=== PATIENT | female | born 1940 ===

== ENCOUNTER 2020-09-09 05:18 | Emergency (ER) | payer MEDICARE ==
[~2020-09-09] VITALS: Ht 162.6 cm; Wt 95.0 kg
--- NOTE | 2020-09-09 05:37 | NUR ---
PT C/O OF RIGHT ANKLE PAIN FROM FALLING YESTERDAY WHILE SHOPPING. ANKLE NOTED TO BE SWOLLEN AND BRUISED. CMS INTACT. DENIES HEAD INJURY, BLURRED VISION, OR LOC DURING FALL. PT ATTACHWD TO MONITORS, VSS. BED IN LOW POSITION. RAILS ENGAGED. WILL CONTINUE TO MONITOR. WHEELCHAIRED BACK TO ROOM. SON AT BEDSIDE.
[2020-09-09] MEDS ORDERED: BACITRACIN ZINC OINT 500U/GM, 0.9 GM ONE (05:52)
[2020-09-09] MEDS ORDERED: ACETAMINOPHEN 500 MG TABLET ONE (05:53)
[2020-09-09] MEDS ORDERED: ACETAMINOPHEN 500 MG TABLET PO ONE (06:00)
--- NOTE | 2020-09-09 06:01 | NUR ---
PT RESTING IN BED WATCHING TV. X-RAY TECH JUST LEFT ROOM. PT IN NAD. WCTM.
--- NOTE | 2020-09-09 06:34 | NUR ---
PT RESTING IN BED. ATTACHED TO MONITORRS. VSS. WCTM. NO AVCUTE CHANGES NOTED.
--- NOTE | 2020-09-09 06:50 | NUR ---
GAVE REPORT TO CHELY MUSTAFA
--- NOTE | 2020-09-09 07:07 | NUR ---
ASSUMING CARE OF PATIENT AFTER REPORT FROM BETH MUSTAFA. PT RESTING IN BED. NADN. SMITH. SON AT BEDSIDE.
[2020-09-09 08:07] VITALS: BP 135/59
--- NOTE | 2020-09-09 08:21 | NUR ---
Patient and Caregiver given discharge instructions and they have confirmed that they understand the instructions. Patient ambulatory with steady gait with assistance of cane. request wheelchair to car r/t pain.
== END 2020-09-09 08:22 | disposition home or self-care (01) ==
LOC: ED 08:16
DX: S93.431A Sprain of tibiofibular ligament of right ankle, initial encounter (principal); M79.631 Pain in right forearm; I10 Essential (primary) hypertension; W01.0XXA Fall on same level from slipping, tripping and stumbling without subsequent striking against object, initial encounter; Y93.89 Activity, other specified; Y92.009 Unspecified place in unspecified non-institutional (private) residence as the place of occurrence of the external cause; Y99.8 Other external cause status
CPT/HCPCS: 99284